=== PATIENT | male | born 1995 | race Caucasian/White ===

== ENCOUNTER 2017-05-21 22:46 | Emergency (ER) | payer MEDICAID, OTHER ==
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
[2017-05-22 00:10] VITALS: BP 131/87
== END 2017-05-22 00:21 | disposition critical access hospital (66) ==
LOC: CC.ED 22:46
DX: S63.064A Dislocation of metacarpal (bone), proximal end of right hand, initial encounter (principal); F17.210 Nicotine dependence, cigarettes, uncomplicated; Y04.0XXA Assault by unarmed brawl or fight, initial encounter
CPT/HCPCS: 73130-RT; 99284

== ENCOUNTER 2019-03-26 19:35 | Emergency (ER) | payer MEDICAID ==
--- NOTE | 2019-03-26 19:44 | EDM.PDOC ---
ED HPI GENERAL MEDICAL PROBLEM - General Chief Complaint: Trauma Stated Complaint: rib pain after fall Time Seen by Provider: 03/26/19 19:35 Source of Information: Reports: Patient History Limitations: Reports: No Limitations - History of Present Illness INITIAL COMMENTS - FREE TEXT/NARRATIVE: Trauma code called 1930 The patient to the emergency department where he advised he fell 12 feet off of a ladder striking his right side of the head, shoulder and chest wall. The patient has pain to his head and he advised that initially he did not have a loss of consciousness however subsequently he advises he did pass out. The patient does complain of some neck pain right shoulder pain and right chest wall pain. The patient denies any abdominal pain he denies any nausea or vomiting he denies any change in vision he denies any ear, nose, throat symptoms he denies any hip or pelvis pain he denies any upper or lower extreme pain other than the right shoulder. The patient does have abrasions to the head and right shoulder. The patient's tetanus shot is less than 5 years. The patient denies any numbness or tingling, he denies any shortness of breath. This will be a localized treatment focus plan and a full trauma panel will not be ordered or is indicated Onset: Today Duration: Minutes: Location: Reports: Head, Neck, Chest, Upper Extremity, Right Quality: Reports: Ache Severity: Moderate Improves with: Reports: None Worsens with: Reports: Movement Context: Reports: Trauma Associated Symptoms: Reports: Headaches. Denies: Chest Pain, Nausea/Vomiting, Seizure, Shortness of Breath, Weakness Treatments LEAD NITRATE PROCESSOR: Reports: Other (see below) (None) Right Trunk Pain Score (Numeric/FACES): 7 - Related Data Allergies Allergy/AdvReac Type Severity Reaction Status Date / Time No Known Drug Allergies Allergy Other Verified 03/26/19 19:45 Home Meds: Home Meds Ketorolac [Toradol] 10 mg PO TID PRN #10 tab 03/26/19 [Rx] Past Medical History - Past Health History Medical/Surgical History: Denies Medical/Surgical History Gastrointestinal History: Reports: Other (See Below) Other Gastrointestinal History: hernia Musculoskeletal History: Reports: Fracture Neurological History: Reports: Seizure, Other (See Below) Other Neuro History: EPILEPSY Psychiatric History: Reports: ADD, ADHD, Bipolar - Past Surgical History GI Surgical History: Reports: Hernia, Inguinal Neurological Surgical History: Reports: None Musculoskeletal Surgical History: Reports: None Social & Family History - Family History Family Medical History: Noncontributory - Caffeine Use Caffeine Use: Reports: None Review of Systems - Review of Systems Review Of Systems: See Below Constitutional: Reports: No Symptoms Eyes: Reports: No Symptoms. Denies: Vision Change Ears: Reports: No Symptoms. Denies: Pain, Tinnitus, Clear Discharge, Purulent Discharge, Serosanguinous Discharge Nose: Reports: No Symptoms Mouth/Throat: Reports: No Symptoms Respiratory: Reports: No Symptoms. Denies: Shortness of Breath Cardiovascular: Reports: No Symptoms, Other (has right chest wall pain). Denies : Chest Pain GI/Abdominal: Reports: No Symptoms. Denies: Abdominal Pain, Nausea, Vomiting Genitourinary: Reports: No Symptoms Musculoskeletal: Reports: Neck Pain, Shoulder Pain. Denies: Arm Pain, Back Pain , Hand Pain, Leg Pain, Joint Swelling, Muscle Stiffness Skin: Reports: Wound (abrasion, head and right shoulder) Neurological: Reports: Headache. Denies: Confusion, Dizziness, Numbness, Paresthesia, Seizure, Syncope, Tingling, Difficulty Walking, Weakness, Change in Speech, Gait Disturbance Psychiatric: Reports: No Symptoms ED EXAM, GENERAL - Physical Exam Exam: See Below Exam Limited By: No Limitations General Appearance: Alert, WD/WN, No Apparent Distress Eye Exam: Bilateral Eye: EOMI, PERRL Ears: Normal External Exam, Normal Canal, Hearing Grossly Normal, Normal TMs Ear Exam: Bilateral Ear: Auricle Normal, Canal Normal, TM normal Nose: Normal Inspection, Normal Mucosa, No Blood Throat/Mouth: Normal Inspection, Normal Lips, Normal Teeth, Normal Gums, Normal Oropharynx, Normal Voice, No Airway Compromise Head: Normocephalic, Other (right head abrasions and pain) Neck: Normal Inspection, Supple, Full Range of Motion, Tender Lateral. No: Non- Tender Respiratory/Chest: No Respiratory Distress, Lungs Clear, Normal Breath Sounds, No Accessory Muscle Use. No: Chest Non-Tender (right chest tenderness, no subcutaneous emphysema or flail chest noted no crepitus) Cardiovascular: Normal Peripheral Pulses, Regular Rate, Rhythm, No Murmur Peripheral Pulses: 2+: Radial (L), Radial (R), Dorsalis Pedis (L), Dorsalis Pedis (R) GI/Abdominal: Normal Bowel Sounds, Soft, Non-Tender, No Distention Back Exam: Normal Inspection, Full Range of Motion. No: Paraspinal Tenderness, Vertebral Tenderness Extremities: Normal Range of Motion, Normal Capillary Refill, Other (Pain with abrasions to the right shoulder the other extremities are normal) Neurological: Alert, Oriented, CN II-XII Intact, Normal Cognition, Normal Gait, No Motor/Sensory Deficits Psychiatric: Normal Affect, Normal Mood Skin Exam: Warm, Dry, Normal Color, No Rash, Other (Abrasions to the right side of the head as well as the right shoulder). No: Intact Course - Vital Signs Text/Narrative:: The patient was evaluated in emergency department CT of the head, cervical spine and chest was obtained without contrast. These CTs were read by the radiologist who called and gave a verbal report and advised that the CT of the head and cervical spine are normal. He advised that the CT the chest does show a separation of the first rib at the manubrium which she suspects is 8 point ligament. He does advise he sees a small amount of air in the soft tissue however there is no pneumothorax. Incidentally he also sees an area of the thoracic spine that has increased calcification that needs to have further evaluation and he suggests that later date and MRI be obtained to rule out any significant other pathology. I did advise the patient of all these findings including the need to have a follow-up MRI of the thoracic spine and he agrees with this disposition and he agrees to follow-up for the MRI. The patient will be given Toradol 10 mg every 8 hours when necessary for pain he'll be advised to follow-up with his family doctor this week for further evaluation and treatment of the incidental finding as well as his current injuries. The patient is to return to the emergency department sooner if worse or any problems Last Recorded V/S: Last Vital Signs Temp 36.3 C 03/26/19 22:49 Pulse 65 03/26/19 22:49 Resp 16 03/26/19 22:49 BP 127/76 03/26/19 22:49 Pulse Ox 99 03/26/19 22:49 - Orders/Labs/Meds Orders: Active Orders 24 hr Category Date Time Status Vital Signs [RC] Q30M Care 03/26/19 21:00 Active Cervical Spine wo Cont [CT] Stat Exams 03/26/19 19:38 Taken Chest wo Cont [CT] Stat Exams 03/26/19 19:38 Taken Head wo Cont [CT] Stat Exams 03/26/19 19:38 Taken Meds: Medications Discontinued Medications Generic Name Dose Route Start Last Admin Trade Name Freq PRN Reason Stop Dose Admin Ketorolac Tromethamine 60 mg 03/26/19 19:59 03/26/19 20:05 Toradol IM 03/26/19 20:00 60 mg ONETIME ONE Administration Departure - Departure Time of Disposition: 23:00 Disposition: Home, Self-Care 01 Condition: Good Clinical Impression: Fall, Closed head injury, Contusion of right shoulder, Abrasions of multiple sites, Fracture of one rib, right side, initial encounter for closed fracture - Discharge Information *PRESCRIPTION DRUG MONITORING PROGRAM REVIEWED*: Not Applicable *COPY OF PRESCRIPTION DRUG MONITORING REPORT IN PATIENT VALENTINE: Not Applicable Prescriptions: Ketorolac [Toradol] 10 mg PO TID PRN #10 tab PRN Reason: Pain (Moderate 4-6) Instructions: Rib Fracture, Contusion, [id number], Head Injury, Adult, Easy- to-Read Referrals: PCP,Unknown [Primary Care Provider] - Forms: ED Department Discharge Additional Instructions: Increase fluids Toradol 10 mg every 8 hours as needed for pain #10 Follow-up with her family doctor this week, call in the morning for an appointment time Return to the emergency department sooner if worse or new problems Also follow up with family doctor for further evaluation of the abnormal area on your thoracic spine as discussed for further evaluation to include possible MRI - Problem List & Annotations (1) Abrasions of multiple sites SNOMED Code(s): 139822353, 348696145 Code(s): T07.XXXA - UNSPECIFIED MULTIPLE INJURIES, INITIAL ENCOUNTER Status : Acute Priority: High Current Visit: Yes (2) Closed head injury SNOMED Code(s): 909424101859 Code(s): S09.90XA - UNSPECIFIED INJURY OF HEAD, INITIAL ENCOUNTER Status: Acute Priority: High Current Visit: Yes Qualifiers: Encounter type: initial encounter Qualified Code(s): S09.90XA - Unspecified injury of head, initial encounter (3) Contusion of right shoulder SNOMED Code(s): 07164488 Code(s): S40.011A - CONTUSION OF RIGHT SHOULDER, INITIAL ENCOUNTER Status: Acute Priority: High Current Visit: Yes Qualifiers: Encounter type: initial encounter Qualified Code(s): S40.011A - Contusion of right shoulder, initial encounter (4) Fall SNOMED Code(s): 2245373, 052188968 Code(s): W19.XXXA - UNSPECIFIED FALL, INITIAL ENCOUNTER Status: Acute Priority: High Current Visit: Yes Qualifiers: Encounter type: initial encounter Qualified Code(s): W19.XXXA - Unspecified fall, initial encounter (5) Fracture of one rib, right side, initial encounter for closed fracture SNOMED Code(s): 72959528 Code(s): S22.31XA - FRACTURE OF ONE RIB, RIGHT SIDE, INIT FOR CLOS FX Status: Acute Priority: High Current Visit: Yes - Problem List Review Problem List Initiated/Reviewed/Updated: Yes - My Orders Last 24 Hours: My Active Orders 03/26/19 19:38 Cervical Spine wo Cont [CT] Stat Chest wo Cont [CT] Stat Head wo Cont [CT] Stat 03/26/19 21:00 Vital Signs [RC] Q30M - Assessment/Plan Last 24 Hours: My Active Orders 03/26/19 19:38 Cervical Spine wo Cont [CT] Stat Chest wo Cont [CT] Stat Head wo Cont [CT] Stat 03/26/19 21:00 Vital Signs [RC] Q30M Plan: as above
[2019-03-26] MEDS ORDERED: Ketorolac 60 MG/2 ML SDV IM ONE (19:59)
[2019-03-26 22:50] VITALS: BP 127/76; PULSE 65
== END 2019-03-26 23:10 | disposition home or self-care (01) ==
LOC: CC.ED 19:35
DX: S22.31XA Fracture of one rib, right side, initial encounter for closed fracture (principal); S40.011A Contusion of right shoulder, initial encounter; S09.90XA Unspecified injury of head, initial encounter; S00.91XA Abrasion of unspecified part of head, initial encounter; W11.XXXA Fall on and from ladder, initial encounter
CPT/HCPCS: 70450; 71250; 72125; 96372; 99284; J1885

== ENCOUNTER 2020-03-15 01:38 | Emergency (ER) | payer SELFPAY ==
[2020-03-15 01:47] VITALS: BP 127/88; PULSE 67
--- NOTE | 2020-03-15 02:26 | EDM.PDOC ---
ED HPI GENERAL MEDICAL PROBLEM - General Chief Complaint: General Stated Complaint: seizure Time Seen by Provider: 03/15/20 01:51 Source of Information: Reports: Patient, EMS History Limitations: Reports: No Limitations - History of Present Illness INITIAL COMMENTS - FREE TEXT/NARRATIVE: States that he has felt off all day, was distancing self and had an iron taste in his mouth. and then about 0030 he had a "full on" seizure where he was jerking. He states that his girlfriend witnessed it and she thought it lasted about 20 minutes. She called EMS and when they got on scene he was post ictal but he did not have loss of bowel or bladder function. He states he had a second one that lasted only about 5 minutes. EMS states that he was lethargic initially. He states that he had a history of seizures since he was about 4 and that he typically doesn't have this many in a row. He states this is the 4th day in a row. He was in to see Ron Fonseca PA-C and is scheduled to have MRI on Wednesday in [place]. He states that currently he feels ok. He states that he has been worked up for seizures in the past and was on depakote in the past but he stopped them on his own many years ago. He denies any headaches currently. He thinks his last EEG was at age 12. Onset: Today Treatments DIRECTOR INDUSTRIAL RELATIONS: Reports: Oxygen - Related Data Allergies Allergy/AdvReac Type Severity Reaction Status Date / Time lactose Allergy Diarrhea Verified 03/15/20 01:47 No Known Drug Allergies Allergy Other Verified 03/15/20 01:47 Home Meds: Home Meds . [No Known Home Meds] 03/15/20 [History] Past Medical History - Past Health History Medical/Surgical History: Denies Medical/Surgical History Gastrointestinal History: Reports: Other (See Below) Other Gastrointestinal History: hernia Musculoskeletal History: Reports: Fracture Neurological History: Reports: Seizure, Other (See Below) Other Neuro History: EPILEPSY Psychiatric History: Reports: ADD, ADHD, Bipolar - Infectious Disease History Infectious Disease History: Reports: None - Past Surgical History GI Surgical History: Reports: Hernia, Inguinal Male Surgical History: Reports: Other (See Below) Other Male Surgeries/Procedures: undescended testicle surgery Neurological Surgical History: Reports: None Musculoskeletal Surgical History: Reports: None Social & Family History - Family History Family Medical History: Noncontributory - Tobacco Use Smoking Status *Q: Current Every Day Smoker Years of Tobacco use: 20 Packs/Tins Daily: 1 - Caffeine Use Caffeine Use: Reports: Soda - Recreational Drug Use Recreational Drug Use: No ED ROS GENERAL - Review of Systems Review Of Systems: See Below Constitutional: Denies: Fever, Chills, Weakness HEENT: Reports: No Symptoms Respiratory: Reports: No Symptoms Cardiovascular: Reports: No Symptoms Endocrine: Reports: No Symptoms GI/Abdominal: Reports: No Symptoms : Reports: No Symptoms Musculoskeletal: Reports: No Symptoms Skin: Reports: No Symptoms Neurological: Denies: Confusion, Dizziness, Headache, Numbness, Syncope, Tingling, Difficulty Walking Psychiatric: Denies: Agitation, Anxiety, Confusion ED EXAM, GENERAL - Physical Exam Exam: See Below Exam Limited By: No Limitations General Appearance: Alert, WD/WN, No Apparent Distress Ears: Normal External Exam, Normal Canal, Normal TMs Nose: Normal Inspection Throat/Mouth: Normal Inspection, Normal Oropharynx Head: Atraumatic, Normocephalic Neck: Normal Inspection, Supple, Non-Tender, Full Range of Motion Respiratory/Chest: No Respiratory Distress, Lungs Clear, Normal Breath Sounds Cardiovascular: Regular Rate, Rhythm, No Edema GI/Abdominal: Normal Bowel Sounds, Soft, Non-Tender (Male) Exam: Normal Inspection Extremities: Normal Inspection, Normal Capillary Refill Neurological: Alert, Oriented Psychiatric: Normal Affect Skin Exam: Warm, Dry, Intact Course - Vital Signs Last Recorded V/S: Last Vital Signs Temp 98.6 F 03/15/20 01:40 Pulse 67 03/15/20 01:40 Resp 16 03/15/20 01:40 BP 127/88 03/15/20 01:40 Pulse Ox 98 03/15/20 01:40 - Orders/Labs/Meds Orders: Active Orders 24 hr Category Date Time Status CBC WITH AUTO DIFF [HEME] Stat Lab 03/15/20 02:04 Ordered COMPREHENSIVE METABOLIC PN,CMP [CHEM] Stat Lab 03/15/20 02:04 Ordered DRUG SCREEN URINE BIORAD [URCHEM] Stat Lab 03/15/20 02:04 Ordered MAGNESIUM [CHEM] Stat Lab 03/15/20 02:12 Ordered UA W/MICROSCOPIC [URIN] Stat Lab 03/15/20 02:04 Ordered - Re-Assessments/Exams Free Text/Narrative Re-Assessment/Exam: 03/15/20 02:39 discussed normal labs with pt. will discharge at this time. Will make appt for him to see Ron Fonseca tomorrow after MRI to decide if he wants to start him on medications for seizures. Departure - Departure Time of Disposition: 02:40 Disposition: Home, Self-Care 01 Condition: Good Clinical Impression: Seizure - Discharge Information *PRESCRIPTION DRUG MONITORING PROGRAM REVIEWED*: Not Applicable *COPY OF PRESCRIPTION DRUG MONITORING REPORT IN PATIENT VALENTINE: Not Applicable Instructions: Seizure, Adult, [id number] Additional Instructions: NO driving drink plenty of water tonight and tomorrow Make appt tomorrow after MRI with Ron Fonseca to discuss starting meds. Sepsis Event Note (ED) - Evaluation Sepsis Screening Result: No Definite Risk - Focused Exam Vital Signs: Vital Signs Temp Pulse Resp BP Pulse Ox 03/15/20 01:40 98.6 F 67 16 127/88 98 - Problem List & Annotations (1) Seizure SNOMED Code(s): 96066535 Code(s): R56.9 - UNSPECIFIED CONVULSIONS Status: Acute Priority: High Current Visit: Yes - Problem List Review Problem List Initiated/Reviewed/Updated: Yes - My Orders Last 24 Hours: My Active Orders 03/15/20 02:04 CBC WITH AUTO DIFF [HEME] Stat COMPREHENSIVE METABOLIC PN,CMP [CHEM] Stat DRUG SCREEN URINE BIORAD [URCHEM] Stat UA W/MICROSCOPIC [URIN] Stat 03/15/20 02:12 MAGNESIUM [CHEM] Stat - Assessment/Plan Last 24 Hours: My Active Orders 03/15/20 02:04 CBC WITH AUTO DIFF [HEME] Stat COMPREHENSIVE METABOLIC PN,CMP [CHEM] Stat DRUG SCREEN URINE BIORAD [URCHEM] Stat UA W/MICROSCOPIC [URIN] Stat 03/15/20 02:12 MAGNESIUM [CHEM] Stat
[2020-03-15 02:34] LABS: CHLORIDE,CL 105 mEq/L (98-106); SODIUM,NA 143 mEq/L (136-145)
== END 2020-03-15 02:46 | disposition home or self-care (01) ==
LOC: CC.ED 01:38
DX: G40.909 Epilepsy, unspecified, not intractable, without status epilepticus (principal); F17.210 Nicotine dependence, cigarettes, uncomplicated; Z91.011 Allergy to milk products
CPT/HCPCS: 36415; 80053; 80305-QW; 81001; 83735; 85025; 99284

== ENCOUNTER 2020-12-07 16:16 | Emergency (ER) | payer MEDICAID ==
[2020-12-07 16:25] VITALS: BP 153/94; PULSE 112
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
== END 2020-12-07 17:54 | disposition home or self-care (01) ==
LOC: CC.ED 16:16
DX: S09.90XA Unspecified injury of head, initial encounter (principal); Z72.0 Tobacco use; Z91.011 Allergy to milk products; Y00.XXXA Assault by blunt object, initial encounter; Y92.009 Unspecified place in unspecified non-institutional (private) residence as the place of occurrence of the external cause
CPT/HCPCS: 70450; 99284-25

== ENCOUNTER 2021-03-26 19:01 | Emergency (ER) | payer MEDICAID ==
[2021-03-26 19:07] VITALS: BP 148/90; PULSE 75
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
== END 2021-03-26 19:20 | disposition home or self-care (01) ==
LOC: CC.ED 19:01
DX: S70.11XA Contusion of right thigh, initial encounter (principal); Z91.011 Allergy to milk products; Z79.899 Other long term (current) drug therapy; W22.09XA Striking against other stationary object, initial encounter
CPT/HCPCS: 99283